=== PATIENT | male | born 1960 | race Two or more races ===

== ENCOUNTER → 2024-05-11 | Outpatient (CLI) | payer MEDICAID ==
[~2024-05-11] VITALS: Ht 170.2 cm; Wt 117.0 kg
[2024-05-11] MEDS: REGADENOSON 0.4 MG/5 ML SYRG IV ONE ×2 (09:07)
== END | disposition home or self-care (01) ==
LOC: XY 07:10
PROVIDERS: ATTEND Internal Medicine
DX: Z01.810 Encounter for preprocedural cardiovascular examination (principal); E78.00 Pure hypercholesterolemia, unspecified; E11.9 Type 2 diabetes mellitus without complications; Z68.41 Body mass index [BMI] 40.0-44.9, adult; I11.0 Hypertensive heart disease with heart failure; I50.9 Heart failure, unspecified
CPT/HCPCS: 78452; 93017; A9500; J2785

== ENCOUNTER 2024-06-12 06:58 | Day surgery (SDC) | payer MEDICAID ==
[2024-06-12] VITALS (11 sets, daily range): BP systolic 115–152; BP diastolic 67–78; PULSE 52–66; RESP 9–14; TEMP 97.7; O2SAT 92–98
[~2024-06-12] VITALS: Ht 170.2 cm; Wt 119.3 kg
[~2024-06-12 06:58] MED LIST: METF-370 PO; TAMS0.4C39 PO
[2024-06-12] MEDS ORDERED: IODIXANOL 320MG/ML 100ML BTL IV ONE ×2 (07:25→08:43)
[2024-06-12] MEDS ORDERED: HEPARIN IN NS 1000Units/500mL 1,500 ML ONE (07:25)
[2024-06-12] MEDS ORDERED: LIDOCAINE 2%HCL (LOCAL ANESTH.) INJ 20ML MDV ONE (07:43)
[2024-06-12] MEDS ORDERED: fentaNYL CITRATE 100 MCG/2 ML VL ONE (08:22)
[2024-06-12] MEDS ORDERED: HEPARIN SODIUM (PORCINE) 5000 UNITS/ML 1ML VIAL ONE (08:22)
[2024-06-12] MEDS ORDERED: VERAPAMIL 2.5MG/ML INJ 2ML VIAL IV ONE (08:22)
[2024-06-12] MEDS ORDERED: ANGIOMAX 250 MG VIAL IV ONE (08:22)
[2024-06-12] MEDS ORDERED: MIDAZOLAM HCL 2MG/2ML 2ml VIAL (1mg/ml) ONE (08:23)
[2024-06-12] MEDS ORDERED: SODIUM CHL 0.9% 0 ML ONE (08:23)
== END 2024-06-12 12:00 | disposition home or self-care (01) ==
LOC: CATH 06:58
PROVIDERS: ATTEND Internal Medicine
DX: R07.89 Other chest pain (principal); I25.10 Atherosclerotic heart disease of native coronary artery without angina pectoris; I10 Essential (primary) hypertension; E11.9 Type 2 diabetes mellitus without complications; E78.00 Pure hypercholesterolemia, unspecified; Z79.84 Long term (current) use of oral hypoglycemic drugs
CPT/HCPCS: 71045; 93458; C1769; C1894; J1644; J2250; J3010; J7030; Q9967; 99152

== ENCOUNTER 2024-11-27 06:11 | Inpatient (IN) | payer MEDICAID, OTHER ==
[~2024-11-27] VITALS: Ht 170.2 cm; Wt 125.8 kg
[2024-11-27] VITALS (7 sets, daily range): BP systolic 113–145; BP diastolic 54–75; PULSE 52–68; RESP 10–17; TEMP 97.6–98.2; O2SAT 92–93
[~2024-11-27 06:11] MED LIST changes: +ATOR10TA PO
[2024-11-27] MEDS: PREGABALIN CAPSULE 75 MG CAP PO ONE (07:00)
[2024-11-27] MEDS: CELECOXIB 100 MG CAP PO ONE (07:00)
[2024-11-27] MEDS: ACETAMINOPHEN IV 1000 MG/100ML (10MG/ML) IV ONE (07:00)
[2024-11-27] MEDS ORDERED: MIDAZOLAM HCL 2MG/2ML 2ml VIAL (1mg/ml) ONE (07:03)
[2024-11-27] MEDS ORDERED: fentaNYL CITRATE 100 MCG/2 ML VL ONE (07:03)
[2024-11-27] MEDS ORDERED: DEXTROSE (50%) 50ML SYRG IV PRN (07:15)
[2024-11-27] MEDS ORDERED: NITROGLYCERIN 0.4 MG SL TAB SL PRN (07:15)
[2024-11-27] MEDS ORDERED: MORPHINE SULFATE INJ 2 MG/ml SYRG IV PRN (07:15)
[2024-11-27] MEDS ORDERED: PROPOFOL 10 MG/ML 20 ML IV ONE ×2 (07:40→08:56)
[2024-11-27] MEDS: CEFEPIME 1GM/ 50ML 50 ML IV ONE (08:40)
[2024-11-27] MEDS: ceFAZolin 2 GM/D5W100ml 100 ML IV ONE (08:40)
[2024-11-27] MEDS: TRANEXAMIC ACID 20 ML ONE ×2 (09:07→09:12)
[2024-11-27] MEDS: BUPIVACAINE 0.25% INJ 50ML VIAL ONE (10:00)
[2024-11-27] MEDS: MORPHINE SULF PF 5 MG/10 ML VIAL ONE (10:00)
[2024-11-27] MEDS: KETOROLAC TROMETH 30 MG/ML 1ML VIAL ONE (10:00)
[2024-11-27] MEDS: VANCOMYCIN HCL 1000 MG VL ONE (10:01)
[2024-11-27] MEDS ORDERED: ePHEDrine SULFATE 50 MG/ML AMP ONE (10:08)
[2024-11-27] MEDS ORDERED: MEPERIDINE HCL (25 MG/ML) 1ML VIAL IV PRN (11:00)
[2024-11-27] MEDS: InsuLIN REG 1unit/0.01ml Soln (100units/ml) SC SCH ×2 (11:00→22:57)
[2024-11-27] MEDS: ACCU-CHEK COMFORT CURVE STRIP VI SCH (11:00)
[2024-11-27] MEDS ORDERED: ACETAMINOPHEN IV 1000 MG/100ML (10MG/ML) IV PRN ×2 (11:00→14:00)
[2024-11-27] MEDS ORDERED: HYDROmorphone HCL 2 MG/ML VL/or syr IV PRN (11:00)
--- NOTE | 2024-11-27 11:21 | DVH ---
EXAM: XY R KNEE 2V XRAY HISTORY: S/P SURGERY COMPARISON: None TECHNIQUE: AP and lateral views of the right knee were performed. FINDINGS: See below. IMPRESSION: 1. Postoperative changes of right total knee arthroplasty without evidence of periprosthetic fracture or other complication. 2. Intramedullary jenna is partially visualized in the mid tibial diaphysis, not fully imaged here.
[2024-11-27] MEDS: KETOROLAC TROMETH 30 MG/ML 1ML VIAL IV SCH (13:57)
[2024-11-27] MEDS: ACETAMINOPHEN IV 100 ML IV ONE (14:01)
[2024-11-27] MEDS: ROPIVACAINE 0.5% (5MG/ML) 20ML AMPULE IJ ONE (14:02)
[2024-11-27] MEDS: SODIUM CHLOR 0.9% PF (SALINE LOCK) 10ML VIAL/SYR IV SCH (14:04)
[2024-11-27] MEDS: ceFAZolin 2 GM/D5W50ml 50 ML IV SCH (15:53)
[2024-11-27] MEDS: oxyCODONE ER 10 MG TAB PO SCH (15:53)
[2024-11-27] MEDS: ONDANSETRON HCL 4 MG/2 ML VIAL IV ONE (15:53)
[2024-11-27] MEDS: LACTATED RINGER'S 1,000 ML IV SCH (15:54)
[2024-11-27] MEDS: PANTOPRAZOLE 40 MG TAB PO ONE (15:54)
[2024-11-27] MEDS: DOCUSATE SOD 100 MG CAP PO SCH (15:54)
--- NOTE | 2024-11-27 17:47 | DVHOP2 ---
Operative Report - 2 Report Details Date: 11/27/24 Preop Diagnosis: RIght knee osteoarthritis with 30 degree varus deformity Postop Diagnosis: as above Surgeon: Roland Aguilera MD Specialist Icu: Tequila Ku NP Anesthesiologist: Laureen DAWN Anesthesia: Regional Implant: [employer] Size 7 femur PS (2 mm inc in distal femur cut) Size 5 tibia (large medial wear deficit so lateralized tibia baseplate) Size 35 patella Size 12 constraint PS poly Consent: The patient was informed of the risks and benefits of the procedure. These include but are not limited to complications of anesthesia, postoperative infection, incomplete relief of symptoms, recurrence of symptoms, damage to blood vessels, nerves and tendons, deep venous thrombosis, pulmonary embolism and possible need for repeat surgery in the future. Estimated Blood Loss: 50 cc Name of Procedure Performed Complex right total knee arthroplasty with computer navigation, correction of greater than 30 degree varus deformity Procedure Details Procedure Details: FINDINGS: degenerative disease with grade IV changes with varus deformity of over 30 degrees/ Medial aspect severely tight with preop Range of motion 0-80 degrees; INDICATION: This patient has failed non-operative treatments for knee arthritis and is now indicated for a total knee replacement. Preoperatively in the waiting area as well as in the office, I had a long discussion with the patient regarding the plan, the expected outcome, the risks, benefits, and alternatives of surgery. The risks include, but are not limited to, infection (which may require future surgery and removal of implants) , bleeding (which may require a transfusion), damage to nerves, arteries, veins, tendons, muscles and other adjacent structures. Also discussed the possibilities of intraoperative fractures, implant loosening, heterotopic bone formation, and revision for variety of reasons, and medical complications etc. This was discussed at length and consent has been obtained. DESCRIPTION OF PROCEDURE: In the preoperative holding area, the consent was reviewed and the appropriate extremity was verified by the patient and marked with my initials. The patient was then transferred to the operating theatre. Appropriate anesthesia was induced. All bony prominences were well padded. A time out was performed verifying the side and site of surgery according to maribel lux protocol. Preoperative antibiotics were given 10 minutes prior to tourniquet inflation. Tranexamic was given. A well padded thigh tourniquet was applied. The extremity was then prepped and draped in the usual sterile fashion. The extremity was exsanguinated and the tourniquet was inflated. We then made a mid-line incision, which we continued to the underlying capsular tissue. We performed a medial parapatellar arthrotomy. We periosteally exposed the proximal tibia, excised the anterior fat pad and synovium from the distal aspect of the femur. We then subluxed the patella and brought the knee up into flexion. The lateral meniscus, ACL, and PCL were released. We used the appropriate guide with attached computer navigation to secure the distal femoral cutting block to the femur with pins and completed the distal femoral cut in 0 degrees to the mechanical axis with an oscillating saw. We removed the distal femoral cutting block and turned our attention to the tibia. We used the extramedullary tibial alignment guide with computer navigation to secure the proximal tibial cutting block to the tibia with pins, setting it for a 1mm cut from the more involved side, medially and completed the proximal tibial cut. Medially we had a large bony defect. We then used the spacer block and alignment jenna to check the varus-valgus angle of our cuts and the extension gap. Large medial release done to balance gap as patient was severely tight medially but opened significantly laterally. We marked our femoral anatomy, including Leola's line and the epicondylar axis. Using that as a rotational guide, we used the sizing guide to size our femur properly, using a stylus to ensure there would be no notching. We then used the AP cutting guide to make our anterior and posterior cuts and chamfer cuts with an oscillating saw. We again checked the flexion and extension gaps and coronal balancing. Next, we sized our tibia and secured a baseplate with appropriate rotation with pins. We placed a trial femur in position and completed preparation of the notch with reamers and box osteotome and placed a trial notch in position. We used trials to choose our liner size and then placed the liner in place and reduced the knee. We used an oscillating saw to resurface the patella, and used a guide to choose the button size and completed patella preparation with the drill. We then placed a trial button in place. At this point, we checked our seven parameters: 1) Limb alignment 2) Extension 3) Flexion against gravity 4) Flexion stability 5) Varus-valgus balancing 6) Component rotation 7) Patella tracking We were satisfied with these and removed all trials with the exception of the baseplate. We completed preparation of the tibia with the appropriate reamer and keel impactor and then removed the baseplate. We placed a bone plug in the distal femur and then irrigated and dried all bony surfaces and injected our pain cocktail. Cement with antibiotics was hand-mixed on the back table. We thumb impacted cement into the proximal tibia, distal femur and patella and impacted our tibial, femoral and patellar components into position. Excess naila ent was removed with curettes. We impacted our liner and reduced the knee and held it with axial loading until all cement hardened. We did a isaura-articular cocktail block Once all cement had hardened, we brought the knee back up into flexion and used an osteotome to remove excess cement. We released the tourniquet and achieved hemostasis where necessary. A dilute betadine solution (17.5mL in 500mL saline) was used to wash the joint and left to sit for 3 minutes. This was then irrigated out with copious amounts of pulse lavage. We sprinkled 1g vancomycin powder below the fascia and 1g above the fascia. We copiously irrigated the knee. We re-checked our seven parameters. We closed our capsular incision with a PDS style suture. We irrigated further. We closed the subcutaneous tissue with Vicryl suture and re-approximated the skin with Lilia. We verified all lower extremity compartments were soft and compressible and that we had intact distal pulses. We wrapped the extremity in sterile Webril and dariana bandage. The patient was transferred to the recovery room in stable condition. Condition Good Disposition Still a Patient ROLAND AGUILERA MD Nov 27, 2024 17:47
--- NOTE | 2024-11-27 18:29 | DVHINCON2 ---
Date of service: Nov 27, 2024 Referring Physician Simone Reason for Consultation Medical management History of Present Illness This is a 64 year old male with a PMH of HTN, DM, obesity and right knee osteoarthritis with 30 degree varus deformity who was referred to the hospital for total knee arthroplasty. Patient has failed non-operative treatments for knee arthritis and was indicated for a total knee replacement by Dr. Nichols. The patient underwent complex right total knee arthroplasty with computer navigation, correction of greater than 30 degree varus deformity and tolerated the procedure well. The patient has been admitted to the hospital. I am asked to consult on this patient for medical management. Allergies: Coded Allergies: NO KNOWN ALLERGIES (Unverified , 05/11/24) Home Meds Reported Medications Atorvastatin Calcium (Lipitor) 10 Mg Tab, 10 MG PO DAILY, TAB 11/23/24 Tamsulosin Hcl (Tamsulosin Hcl) 0.4 Mg Cap, 0.4 MG PO QPM for BPH for 30 Days, MG 06/07/24 Metformin Hydrochloride (Metformin Hcl) 500 Mg Tab, 1000 MG PO DAILY for DIABETES for 30 Days, MG 06/07/24 Current Medications Current Medications Medications (Trade) Dose Ordered Sig/Autumn Route PRN Reason Start Time Stop Time Status Last Admin Tamsulosin HCl (Flomax) 0.4 mg QPM PO 11/27/24 18:00 Atorvastatin Calcium (Lipitor) 10 mg HS PO 11/27/24 22:00 Lactated Ringer's 1,000 ml @ 100 mls/hr Q10H IV 11/27/24 07:15 Sodium Chloride (Saline Lock Ns) 10 ml Q8HR IV 11/27/24 14:00 11/27/24 14:04 Oxycodone/ Acetaminophen (Percocet 5/ 325MG Tablet) 1 tab Q4HP PRN PO MODERATE PAIN 11/27/24 07:15 Hydromorphone HCl (Dilaudid Injection) 1 mg Q2HP PRN IV SEVERE PAIN (7-10 PAIN SCALE) 11/27/24 07:15 Oxycodone HCl (OxyCONTIN ER Tablet) 10 mg Q12HR PO 11/27/24 10:00 Ondansetron HCl (Zofran) 4 mg Q6HP PRN IV NAUSEA / VOMITING 11/27/24 07:15 Docusate Sodium (Colace Capsule) 100 mg Q12HR PO 11/27/24 10:00 Enoxaparin Sodium (Lovenox) 40 mg DAILY SC 11/28/24 10:00 Nitroglycerin (Ntrostat Sublingual) 0.4 mg Q5MINP PRN SL FOR CHEST PAIN 11/27/24 07:15 Morphine Sulfate 2 mg Q30M PRN IV FOR CHEST PAIN 11/27/24 07:15 Cefepime HCl 50 ml @ 12.5 mls/hr DAILY IV 11/28/24 10:00 Cefazolin Sodium/ Dextrose 50 ml @ 50 mls/hr Q8HR IV 11/27/24 14:00 11/28/24 06:59 Ketorolac Tromethamine (Toradol Injection) 15 mg Q6HPRN IV 11/27/24 12:00 11/28/24 18:01 11/27/24 13:57 Diagnostic Test (Pha) (Accu-Chek Comfort Curve T) 1 strip ACHS 11/27/24 11:30 11/27/24 17:43 Insulin Human Regular (InsuLIN R) HS SC 11/27/24 22:00 Insulin Human Regular (InsuLIN R) AC SC 11/27/24 11:30 11/27/24 17:56 Dextrose 50 ml UD PRN IV Blood Sugar LESS THAN 60 11/27/24 07:15 Acetaminophen (Ofirmev) 1,000 mg [id number] PRN IV PAIN SCALE 1-3 OR TEMP>100.4 11/27/24 11:00 11/27/24 11:01 DC Hydromorphone HCl (Dilaudid Injection) 0.5 mg Q10M PRN IV SEVERE PAIN (7-10 PAIN SCALE) 11/27/24 11:00 11/27/24 15:00 DC Meperidine HCl (Demerol Injection) 25 mg Q10M PRN IV MODERATE PAIN (4-6 PAIN SCALE) 11/27/24 11:00 11/27/24 15:00 DC Acetaminophen (Ofirmev) 1,000 mg [id number] PRN IV PAIN SCALE 1-3 OR TEMP>100.4 11/27/24 14:00 11/27/24 14:30 DC Review of Systems Constitutional: No symptom reported Ears, Nose, & Throat: No symptom reported Eyes: No symptom reported Pulmonary/Respiratory: No symptom reported Cardiovascular: No symptom reported Gastrointestinal: No symptom reported Genitourinary: No symptom reported Musculoskeletal: Other (right knee pain) Skin: No symptom reported Psychiatric: No symptom reported Endocrine: No symptom reported Hemotologic/Lymphatic: No symptom reported Vital Signs Vital Signs Date Time Temp Pulse Resp B/P (MAP) Pulse Ox O2 Delivery O2 Flow Rate FiO2 11/27/24 17:00 97.6 62 16 145/75 (98) 93 97.6 11/27/24 12:39 Room Air Physical Exam GENERAL: Awake, alert, oriented. Obese. LUNGS: Clear. CARDIOVASCULAR: Heart sounds are good. ABDOMEN: Soft. Labs/Diagnostic Data Labs Test 11/27/24 17:32 Range/Units POC Glucose 216 H 70-106 mg/dl Assessment Right knee osteoarthritis. S/P complex right total knee arthroplasty. HTN. DM. Obesity. Plan/Recommendation I agree with your ongoing assessment and care of plan. Lipitor. IV antibiotics with Cefazolin and Cefepime. DVT prophylactics. Oxycodone and Dilaudid for pain management. Additional plan as per the hospital course. A total of 45 minutes was spent reviewing the patient record, examining the patient, making a diagnostic and therapeutic plan, discussing this plan with medical personnel, following up on diagnostic studies and following the patient for clinical stability excluding any and all procedures. At least 50% of this time was spent in direct, [id number] contact. Plan discussed with: Patient ERYN MESSER MD Nov 27, 2024 18:26
[2024-11-27] MEDS: TAMSULOSIN HYDROCHLORIDE 0.4 MG CAP PO SCH (19:09)
[2024-11-27] MEDS: HYDROmorphone HCL 2 MG/ML VL/or syr IV PRN (19:10)
[2024-11-27] MEDS: ATORVASTATIN 20 MG TAB PO SCH (21:35)
[2024-11-28] VITALS (7 sets, daily range): BP systolic 121–154; BP diastolic 45–71; PULSE 69–90; RESP 17–20; TEMP 98.1–102.6; O2SAT 90–94
[2024-11-28] MEDS: ONDANSETRON HCL 4 MG/2 ML VIAL IV PRN (05:36)
[2024-11-28 07:22] LABS: Hematocrit 39.7 % (41.0-53.0); Hemoglobin 13.5 g/dL (13.5-17.5)
[2024-11-28 07:33] LABS: Alanine Aminotransferase 19 U/L (7-40); Albumin 3.5 g/dL (3.2-4.8); Alkaline Phosphatase 91 U/L (46-116); Anion Gap 9 (5-15); Aspartate Aminotransferase 14 U/L (13-40); BUN/Creatinine Ratio 16.9 (10.0-20.0); Blood Urea Nitrogen 14 mg/dL (9-23); Calcium 8.8 mg/dL (8.7-10.4); Carbon Dioxide 26 mmol/L (20-31); Chloride 103 mmol/L (98-107); Potassium 3.8 mmol/L (3.5-5.1); Sodium 138 mmol/L (136-145)
[2024-11-28 07:34] LABS: Bilirubin, Total 0.7 mg/dL (0.2-1.0)
[2024-11-28 07:35] LABS: Glucose 171 mg/dL (74-106); Total Protein 5.5 g/dL (5.7-8.2)
--- NOTE | 2024-11-28 08:12 | DVHPN2 ---
Progress Note Date Seen: Nov 28, 2024 Medical Necessity Reason Pt with a Central, PICC or Fol: No Subjective Patient reports: No new complaints Objective vital signs Vital Sign Date Time Temp Pulse Resp B/P (MAP) Pulse Ox O2 Delivery O2 Flow Rate FiO2 11/28/24 06:27 91 17 138/60 11/28/24 04:00 102.6 94 102.6 11/27/24 20:00 Room Air* 0 21 Total Intake and Output 11/27/24 11/27/24 11/28/24 15:00 23:00 07:00 Intake Total 190 ml 240 ml 450 ml Output Total 300 ml 350 ml Balance 190 ml -60 ml 100 ml medications Current Medications Medications Dose Ordered Sig/Autumn Route Start Time Stop Time Status Last Admin Dose Admin Tamsulosin HCl 0.4 mg QPM PO 11/27/24 18:00 11/27/24 19:09 0.4 MG Atorvastatin Calcium 10 mg HS PO 11/27/24 22:00 11/27/24 21:35 10 MG Lactated Ringer's 1,000 ml @ 100 mls/hr Q10H IV 11/27/24 07:15 11/28/24 05:00 100 MLS/HR Sodium Chloride 10 ml Q8HR IV 11/27/24 14:00 11/28/24 05:00 10 ML Oxycodone/ Acetaminophen 1 tab Q4HP PRN PO 11/27/24 07:15 Hydromorphone HCl 1 mg Q2HP PRN IV 11/27/24 07:15 11/28/24 06:27 1 MG Oxycodone HCl 10 mg Q12HR PO 11/27/24 10:00 11/27/24 21:35 10 MG Ondansetron HCl 4 mg Q6HP PRN IV 11/27/24 07:15 11/28/24 05:36 4 MG Docusate Sodium 100 mg Q12HR PO 11/27/24 10:00 Enoxaparin Sodium 40 mg DAILY SC 11/28/24 10:00 Nitroglycerin 0.4 mg Q5MINP PRN SL 11/27/24 07:15 Morphine Sulfate 2 mg Q30M PRN IV 11/27/24 07:15 Cefepime HCl 50 ml @ 12.5 mls/hr DAILY IV 11/28/24 10:00 Ketorolac Tromethamine 15 mg Q6HPRN IV 11/27/24 12:00 11/28/24 18:01 11/28/24 05:01 15 MG Diagnostic Test (Pha) 1 strip ACHS 11/27/24 11:30 11/28/24 06:22 1 STRIP Insulin Human Regular HS SC 11/27/24 22:00 11/27/24 22:57 4 UNITS Insulin Human Regular AC SC 11/27/24 11:30 11/28/24 06:25 3 UNITS Dextrose 50 ml UD PRN IV 11/27/24 07:15 laboratory and microbiology Laboratory Tests 11/28/24 06:29 Test 11/28/24 06:29 Range/Units Serum Glucose 171 H 74-106 mg/dL Problem List/Assessment/Plan Problem List/Assessment/Plan 1. pain control 2. DVT ppx 3. CPM as ordered 4. Knee immobilizer to be worn at night when sleeping 5. physical therapy 6. d/c planning for home tomorrow Plan discussed with: Patient Date of Service: Nov 28, 2024 Billing Provider: FELICE AGUILERA MD Common Visit Codes: NOT BILLABLE FREDA MENDOZA NP Nov 28, 2024 08:12
[2024-11-28] MEDS: CEFEPIME 1GM/ 50ML 50 ML IV SCH (09:04)
[2024-11-28] MEDS: ENOXAPARIN SOD 40 MG/0.4 ML SYRINGE SC SCH (09:05)
--- NOTE | 2024-11-28 17:14 | DVHPN2 ---
Progress Note - Dictate Date Seen: Nov 28, 2024 Medical Necessity Reason Pt with a Central, PICC or Fol: No Subjective Patient was seen and evaluated in follow up. Patient is complaining of right knee pain. Patient advised to wear knee immobilizer at night when sleeping. H&H stable. Pending PT eval. vital signs Vital Sign Date Time Temp Pulse Resp B/P (MAP) Pulse Ox O2 Delivery O2 Flow Rate FiO2 11/28/24 16:36 87 18 128/58 11/28/24 13:00 98.3 98.3 11/28/24 09:00 90 11/28/24 08:00 Room Air* 0 21 Total Intake and Output 11/27/24 11/27/24 11/28/24 15:00 23:00 07:00 Intake Total 190 ml 240 ml 650 ml Output Total 300 ml 350 ml Balance 190 ml -60 ml 300 ml medications Current Medications Medications Dose Ordered Sig/Autumn Route Start Time Stop Time Status Last Admin Dose Admin Tamsulosin HCl 0.4 mg QPM PO 11/27/24 18:00 11/27/24 19:09 0.4 MG Atorvastatin Calcium 10 mg HS PO 11/27/24 22:00 11/27/24 21:35 10 MG Lactated Ringer's 1,000 ml @ 100 mls/hr Q10H IV 11/27/24 07:15 11/28/24 05:00 100 MLS/HR Sodium Chloride 10 ml Q8HR IV 11/27/24 14:00 11/28/24 14:05 10 ML Oxycodone/ Acetaminophen 1 tab Q4HP PRN PO 11/27/24 07:15 Hydromorphone HCl 1 mg Q2HP PRN IV 11/27/24 07:15 11/28/24 16:36 1 MG Oxycodone HCl 10 mg Q12HR PO 11/27/24 10:00 11/28/24 09:05 10 MG Ondansetron HCl 4 mg Q6HP PRN IV 11/27/24 07:15 11/28/24 05:36 4 MG Docusate Sodium 100 mg Q12HR PO 11/27/24 10:00 11/28/24 09:04 100 MG Enoxaparin Sodium 40 mg DAILY SC 11/28/24 10:00 11/28/24 09:05 40 MG Nitroglycerin 0.4 mg Q5MINP PRN SL 11/27/24 07:15 Morphine Sulfate 2 mg Q30M PRN IV 11/27/24 07:15 Cefepime HCl 50 ml @ 12.5 mls/hr DAILY IV 11/28/24 10:00 11/28/24 09:04 12.5 MLS/HR Ketorolac Tromethamine 15 mg Q6HPRN IV 11/27/24 12:00 11/28/24 18:01 11/28/24 05:01 15 MG Diagnostic Test (Pha) 1 strip ACHS 11/27/24 11:30 11/28/24 16:36 1 STRIP Insulin Human Regular HS SC 11/27/24 22:00 11/27/24 22:57 4 UNITS Insulin Human Regular AC SC 11/27/24 11:30 11/28/24 12:36 3 UNITS Dextrose 50 ml UD PRN IV 11/27/24 07:15 objective GENERAL: Awake, alert, oriented. Obese. LUNGS: Clear. CARDIOVASCULAR: Heart sounds are good. ABDOMEN: Soft. laboratory and microbiology Laboratory Tests 11/28/24 06:29 Test 11/28/24 06:29 Range/Units Serum Glucose 171 H 74-106 mg/dL Problem List Right knee osteoarthritis. S/P complex right total knee arthroplasty. HTN. DM. Obesity. Assessment/Plan Continued all current supportive medical care. Lipitor. IV antibiotics with Cefazolin and Cefepime. DVT prophylactics. Oxycodone and Dilaudid for pain management. Additional plan as per the hospital course. Plan discussed with: Patient ERYN MESSER MD Nov 28, 2024 17:14
[2024-11-29] VITALS (7 sets, daily range): BP systolic 126–150; BP diastolic 47–73; PULSE 85–105; RESP 16–19; TEMP 98.8–99.5; O2SAT 91–95
[2024-11-29 06:00] LABS: Hematocrit 37.1 % (41.0-53.0); Hemoglobin 12.9 g/dL (13.5-17.5)
--- NOTE | 2024-11-29 07:39 | DVHPN2 ---
Progress Note Date Seen: Nov 29, 2024 Medical Necessity Reason Pt with a Central, PICC or Fol: No Subjective Patient reports: Feels worse (patient notes increased pain and is having difficulty controlling pain and getting sleep due to discomfort) Objective vital signs Vital Sign Date Time Temp Pulse Resp B/P (MAP) Pulse Ox O2 Delivery O2 Flow Rate FiO2 11/29/24 05:00 99.2 100 19 150/66 (94) 91 99.2 11/28/24 20:00 Room Air* 0 21 Total Intake and Output 11/28/24 11/28/24 11/29/24 15:00 23:00 07:00 Intake Total 380 ml 1300 ml Output Total 150 ml 690 ml Balance 230 ml 610 ml medications Current Medications Medications Dose Ordered Sig/Autumn Route Start Time Stop Time Status Last Admin Dose Admin Tamsulosin HCl 0.4 mg QPM PO 11/27/24 18:00 11/28/24 18:04 0.4 MG Atorvastatin Calcium 10 mg HS PO 11/27/24 22:00 11/28/24 21:56 10 MG Lactated Ringer's 1,000 ml @ 100 mls/hr Q10H IV 11/27/24 07:15 11/28/24 23:15 100 MLS/HR Sodium Chloride 10 ml Q8HR IV 11/27/24 14:00 11/29/24 06:09 10 ML Oxycodone/ Acetaminophen 1 tab Q4HP PRN PO 11/27/24 07:15 Hydromorphone HCl 1 mg Q2HP PRN IV 11/27/24 07:15 11/29/24 02:43 1 MG Oxycodone HCl 10 mg Q12HR PO 11/27/24 10:00 11/28/24 21:56 10 MG Ondansetron HCl 4 mg Q6HP PRN IV 11/27/24 07:15 11/28/24 05:36 4 MG Docusate Sodium 100 mg Q12HR PO 11/27/24 10:00 11/28/24 21:56 100 MG Enoxaparin Sodium 40 mg DAILY SC 11/28/24 10:00 11/28/24 09:05 40 MG Nitroglycerin 0.4 mg Q5MINP PRN SL 11/27/24 07:15 Morphine Sulfate 2 mg Q30M PRN IV 11/27/24 07:15 Cefepime HCl 50 ml @ 12.5 mls/hr DAILY IV 11/28/24 10:00 11/28/24 09:04 12.5 MLS/HR Diagnostic Test (Pha) 1 strip ACHS 11/27/24 11:30 11/29/24 06:17 1 STRIP Insulin Human Regular HS SC 11/27/24 22:00 11/28/24 22:04 4 UNITS Insulin Human Regular AC SC 11/27/24 11:30 11/29/24 06:13 3 UNITS Dextrose 50 ml UD PRN IV 11/27/24 07:15 Examination: GENERAL:Normal, MSK:Abnormal laboratory and microbiology Laboratory Tests 11/29/24 05:20 11/28/24 06:29 Test 11/28/24 06:29 Range/Units Serum Glucose 171 H 74-106 mg/dL Problem List/Assessment/Plan Problem List/Assessment/Plan 64 year old male who is s/p Right TKA POD 2 1. pain control-will attempt to gain better pain control today 2. DVT ppx 3. CPM as ordered, emphasized with patient the importance of range of motion as the goal is to be able to bend to 90 degrees at first postop visit 4. Knee immobilizer to be worn at night when sleeping 5. physical therapy 6. d/c planning for home tomorrow 11/30/2024 Plan discussed with: Patient Date of Service: Nov 29, 2024 Billing Provider: FELICE AGUILERA MD Common Visit Codes: NOT BILLABLE FREDA MENDOZA NP Nov 29, 2024 07:39
--- NOTE | 2024-11-29 15:38 | DVHPN2 ---
Progress Note - Dictate Date Seen: Nov 29, 2024 Medical Necessity Reason Pt with a Central, PICC or Fol: No Subjective Patient was seen and evaluated in follow up. Patient complains of increasing right knee pain and reports having difficulty controlling pain and getting sleep due to discomfort. H&H is stable. BS in the 170s. vital signs Vital Sign Date Time Temp Pulse Resp B/P (MAP) Pulse Ox O2 Delivery O2 Flow Rate FiO2 11/29/24 13:05 85 16 143/61 11/29/24 09:00 99.4 95 99.4 11/29/24 08:00 Room Air* 0 21 Total Intake and Output 11/28/24 11/28/24 11/29/24 15:00 23:00 07:00 Intake Total 380 ml 1300 ml Output Total 150 ml 690 ml Balance 230 ml 610 ml medications Current Medications Medications Dose Ordered Sig/Autumn Route Start Time Stop Time Status Last Admin Dose Admin Tamsulosin HCl 0.4 mg QPM PO 11/27/24 18:00 11/28/24 18:04 0.4 MG Atorvastatin Calcium 10 mg HS PO 11/27/24 22:00 11/28/24 21:56 10 MG Lactated Ringer's 1,000 ml @ 100 mls/hr Q10H IV 11/27/24 07:15 11/29/24 08:59 100 MLS/HR Sodium Chloride 10 ml Q8HR IV 11/27/24 14:00 11/29/24 06:09 10 ML Oxycodone/ Acetaminophen 1 tab Q4HP PRN PO 11/27/24 07:15 Hydromorphone HCl 1 mg Q2HP PRN IV 11/27/24 07:15 11/29/24 08:58 1 MG Oxycodone HCl 10 mg Q12HR PO 11/27/24 10:00 11/29/24 11:16 10 MG Ondansetron HCl 4 mg Q6HP PRN IV 11/27/24 07:15 11/28/24 05:36 4 MG Docusate Sodium 100 mg Q12HR PO 11/27/24 10:00 11/29/24 08:57 100 MG Enoxaparin Sodium 40 mg DAILY SC 11/28/24 10:00 11/29/24 08:59 40 MG Nitroglycerin 0.4 mg Q5MINP PRN SL 11/27/24 07:15 Morphine Sulfate 2 mg Q30M PRN IV 11/27/24 07:15 Cefepime HCl 50 ml @ 12.5 mls/hr DAILY IV 11/28/24 10:00 11/29/24 11:15 12.5 MLS/HR Diagnostic Test (Pha) 1 strip ACHS 11/27/24 11:30 11/29/24 11:24 1 STRIP Insulin Human Regular HS SC 11/27/24 22:00 11/28/24 22:04 4 UNITS Insulin Human Regular AC SC 11/27/24 11:30 11/29/24 11:27 3 UNITS Dextrose 50 ml UD PRN IV 11/27/24 07:15 objective GENERAL: Awake, alert, oriented. Obese. LUNGS: Clear. CARDIOVASCULAR: Heart sounds are good. ABDOMEN: Soft. laboratory and microbiology Laboratory Tests 11/29/24 05:20 11/28/24 06:29 Test 11/28/24 06:29 Range/Units Serum Glucose 171 H 74-106 mg/dL Problem List Right knee osteoarthritis. S/P complex right total knee arthroplasty. HTN. DM. Obesity. Assessment/Plan Continued all current supportive medical care. Lipitor. IV antibiotics with Cefazolin and Cefepime. DVT prophylactics. Oxycodone and Dilaudid for pain management. Additional plan as per the hospital course. Plan discussed with: Patient ERYN MESSER MD Nov 29, 2024 14:11
[2024-11-29] MEDS: OXYCODONE W/ ACETAMINOPHEN 5/325MG TABLET PO PRN (16:32)
[2024-11-30] VITALS (7 sets, daily range): BP systolic 121–140; BP diastolic 56–84; PULSE 89–96; RESP 18–19; TEMP 98.2–100.2; O2SAT 92–96
--- NOTE | 2024-11-30 07:31 | DVHDS2 ---
Discharge Summary Date of Admission Nov 27, 2024 at 07:04 Date of Discharge: Nov 30, 2024 Wounds: 1. You will likely have a gel-type dressing over your wound, you may keep this on for 7-14 days after leaving the hospital unless it becomes soiled or your skin becomes irritated. If a wound vac dressing is placed on your knee this is to be left in place for one week and will be changed as needed. After your remove the dressing or wound vac, the home health nurse may place clean dry dressing over your wound. Keep wound covered, clean and dry for two weeks. 2. [place] will be removed during your initial post-op visit. If you have concerns about our wound, please call the office immediately. 3. If there is drainage from your wound, change the dressing daily until it stops. If drainage lasts more than 10 days, call our office. 4. Low grade (up to 100 degrees) fever is common for the first week after surgery. You should take your temperature daily. If you have fevers of 101 or more, please call the office. Labs/Diagnostic Data: Laboratory Results Test 11/29/24 21:50 11/29/24 05:20 11/28/24 06:29 POC Glucose 258 mg/dl (70-106) Hemoglobin 12.9 g/dL (13.5-17.5) Hematocrit 37.1 % (41.0-53.0) Sodium Level 138 mmol/L (136-145) Potassium Level 3.8 mmol/L (3.5-5.1) Chloride Level 103 mmol/L (98-107) Carbon Dioxide Level 26 mmol/L (20-31) Anion Gap 9 (5-15) Blood Urea Nitrogen 14 mg/dL (9-23) Creatinine 0.83 mg/dL (0.700-1.30) Glomerular Filtration Rate Calc 98 mL/min (>90) BUN/Creatinine Ratio 16.9 (10.0-20.0) Serum Glucose 171 mg/dL (74-106) Calcium Level 8.8 mg/dL (8.7-10.4) Total Bilirubin 0.7 mg/dL (0.2-1.0) Aspartate Amino Transferase (AST) 14 U/L (13-40) Alanine Aminotransferase (ALT) 19 U/L (7-40) Alkaline Phosphatase 91 U/L (46-116) Total Protein 5.5 g/dL (5.7-8.2) Albumin 3.5 g/dL (3.2-4.8) Other Laboratory Tests 11/29/24 05:20 11/28/24 06:29 Brief Hx & Hospital Course: s/p right TKA Condition at Discharge: Good Final Diagnosis/Problems List as above Discharge Disposition: Home with Health Services Discharge Instruct/Medications Diet: Regular Diet comment: may advance diet as tolerated Activity: See Comment Activity comment: 1.You can bear as much weight as you tolerate on your knee unless specifically instructed otherwise. You may use the walking aid which you were discharged with and switch to a cane whenever you feel comfortable doing so. You should use an assistive device until you can walk comfortably without it. Keep in mind that every patient moves at their own speed of recovery so take your time. 2.A physical therapist will visit you at home. 3.Use CPM machine as instructed 4.High impact activity such as jumping, aerobics, tennis, and skiing are not permitted during the first 3 months after surgery. These activities can contribute to accelerated wear and should be done with caution after this time. Discuss this with your surgeon if you have questions. 5.Although a bath or whirlpool is NOT permitted during the first 2-3 weeks, you may shower as soon as you get home from the hospital provided there is no wound drainage. Place a dressing or covering over the wound when you shower. 6.Swimming is not permitted until the wound is healed, which typically occurs approximately 3-4 weeks after surgery. Follow Up/Referral: 1.Driving is not permitted within the first 2 weeks. 2.Your first postoperative visit will take place 2 weeks after discharge. Please call the office once you are home from the hospital to arrange this appointment. 3.Antibiotic preventative treatment is required before dental or other invasive procedures. Please ask your surgeon about this at your first postoperative visit. If you experience chest pain, shortness of breath or severe painful calf swelling, go to the nearest emergency room to be evaluated. Please call our office once your situation is stabilized. Medications: 1.You will be discharged with pain medication, a blood thinner (unless you were previously on a blood thinner prior to surgery) and stool softener. Please follow the instructions regarding these medications as provided by your nurse at the hospital upon discharge. 2.Blood clots in the leg are a known complication of surgery. It is very important that you take the medication to protect against clots. Depending on what you are discharged on typically it is Lovenox 40mg daily for 2 weeks or Aspirin 325mg twice daily for 4 weeks. After you finish this, you should then take baby Aspirin (81mg) for 2 weeks. 3.You should restart all of your prescription medications once discharged unless specifically instructed otherwise. 4.Herbal supplements may be restarted 2 weeks after surgery. 5.If you have been given Coumadin as a blood thinner, please follow up with your grinding wheel dresser during the first two weeks after surgery to review medications and overall medical well-being. 6.Please note that narcotic pain medication may cause constipation. Please remember to take stool softeners (Colace) when using narcotics to help reduce the change of constipation. You should not use alcohol together with narcotic medication. Discharge Statement: "Patient was advised to return to the ER or call 911 if any headaches, dizziness, shortness of breath, chest pain, abdominal pain, bleeding, fevers, or worsening of medical condition. Patient was counseled about treatment plan, medications, possible side effects, patientverbalized understanding. All questions were answered to the best of my ability. This discharge took greater then 30 minutes in planning, reviewing documentation, counseling the patient, and discussing with other team members." ASSESSMENT ASSESSMENT Assessment as above FREDA MENDOZA NP Nov 30, 2024 07:31
[2024-11-30 08:16] LABS: Hematocrit 36.1 % (41.0-53.0); Hemoglobin 12.4 g/dL (13.5-17.5)
--- NOTE | 2024-11-30 13:25 | DVHPN2 ---
Progress Note - Dictate Date Seen: Nov 30, 2024 Medical Necessity Reason Pt with a Central, PICC or Fol: No Subjective Patient was seen and evaluated in follow up. Patient is complaining of right knee pain. BS are elevated in the 200's. CM is arranging services. vital signs Vital Sign Date Time Temp Pulse Resp B/P (MAP) Pulse Ox O2 Delivery O2 Flow Rate FiO2 11/30/24 08:30 99.5 89 19 135/64 (87) 96 99.5 11/30/24 08:00 Room Air* 0 21 Total Intake and Output 11/29/24 11/29/24 11/30/24 15:00 23:00 07:00 Intake Total 985 ml 550 ml Output Total 700 ml Balance 985 ml -150 ml medications Current Medications Medications Dose Ordered Sig/Autumn Route Start Time Stop Time Status Last Admin Dose Admin Tamsulosin HCl 0.4 mg QPM PO 11/27/24 18:00 11/29/24 17:42 0.4 MG Atorvastatin Calcium 10 mg HS PO 11/27/24 22:00 11/29/24 21:47 10 MG Lactated Ringer's 1,000 ml @ 100 mls/hr Q10H IV 11/27/24 07:15 11/30/24 05:15 100 MLS/HR Sodium Chloride 10 ml Q8HR IV 11/27/24 14:00 11/30/24 06:07 10 ML Oxycodone/ Acetaminophen 1 tab Q4HP PRN PO 11/27/24 07:15 11/29/24 16:32 1 TAB Hydromorphone HCl 1 mg Q2HP PRN IV 11/27/24 07:15 11/29/24 08:58 1 MG Oxycodone HCl 10 mg Q12HR PO 11/27/24 10:00 11/30/24 08:20 10 MG Ondansetron HCl 4 mg Q6HP PRN IV 11/27/24 07:15 11/28/24 05:36 4 MG Docusate Sodium 100 mg Q12HR PO 11/27/24 10:00 11/30/24 08:19 100 MG Enoxaparin Sodium 40 mg DAILY SC 11/28/24 10:00 11/30/24 08:20 40 MG Nitroglycerin 0.4 mg Q5MINP PRN SL 11/27/24 07:15 Morphine Sulfate 2 mg Q30M PRN IV 11/27/24 07:15 Cefepime HCl 50 ml @ 12.5 mls/hr DAILY IV 11/28/24 10:00 11/30/24 08:19 12.5 MLS/HR Diagnostic Test (Pha) 1 strip ACHS 11/27/24 11:30 11/30/24 11:02 1 STRIP Insulin Human Regular HS SC 11/27/24 22:00 11/29/24 21:55 6 UNITS Insulin Human Regular AC SC 11/27/24 11:30 11/30/24 11:04 6 UNITS Dextrose 50 ml UD PRN IV 11/27/24 07:15 objective GENERAL: Awake, alert, oriented. Obese. LUNGS: Clear. CARDIOVASCULAR: Heart sounds are good. ABDOMEN: Soft. laboratory and microbiology Laboratory Tests 11/30/24 06:56 11/28/24 06:29 Test 11/28/24 06:29 Range/Units Serum Glucose 171 H 74-106 mg/dL Problem List Right knee osteoarthritis. S/P complex right total knee arthroplasty. HTN. DM. Obesity. Assessment/Plan Continued all current supportive medical care. Lipitor. IV antibiotics with Cefazolin and Cefepime. DVT prophylactics. Oxycodone and Dilaudid for pain management. Additional plan as per the hospital course. Plan discussed with: Patient ERYN MESSER MD Nov 30, 2024 12:14
== END 2024-11-30 17:49 | disposition home health service (06) | DRG 326 ==
LOC: SUR 06:11 → OVERFLOW 07:04 → WEST WING 16:47
PROVIDERS: ADMIT Orthopaedic Surgery Adult Reconstructive Orthopaedic Surgery; ATTEND Orthopaedic Surgery Adult Reconstructive Orthopaedic Surgery
PROC: 8E0YXBZ Computer Assisted Procedure of Lower Extremity (ICD-10-PCS; 2024-11-27)
PROC: 0SRC0J9 Replacement of Right Knee Joint with Synthetic Substitute, Cemented, Open Approach (ICD-10-PCS; principal; 2024-11-27 08:40)
DX: M17.11 Unilateral primary osteoarthritis, right knee (principal); E11.9 Type 2 diabetes mellitus without complications; I10 Essential (primary) hypertension; E66.9 Obesity, unspecified; Z68.41 Body mass index [BMI] 40.0-44.9, adult; Z79.899 Other long term (current) drug therapy; Z79.84 Long term (current) use of oral hypoglycemic drugs
CPT/HCPCS: 36415; 73560; 80053; 82962; 85014; 85018; 86850; 86900; 86901; 97116; 97163; 97530; G0378; J0131; J1815; J1885; J2250; J2405; J2704; J3490

== ENCOUNTER 2025-07-19 09:47 | Day surgery (SDC) | payer OTHER ==
[~2025-07-19] VITALS: Ht 175.3 cm; Wt 120.7 kg
[~2025-07-19 09:47] MED LIST changes: -METF-370 PO; +PERCOT PO; +SITA50TA PO
[2025-07-19 10:42] VITALS: TEMP 97.5
[2025-07-19] MEDS ORDERED: MIDAZOLAM HCL 2MG/2ML 2ml VIAL (1mg/ml) ONE (11:04)
[2025-07-19] MEDS ORDERED: PROPOFOL 10 MG/ML 20 ML IV ONE (11:04)
[2025-07-19] MEDS ORDERED: ONDANSETRON HCL 4 MG/2 ML VIAL ONE (11:04)
[2025-07-19] MEDS ORDERED: fentaNYL CITRATE 100 MCG/2 ML VL ONE (11:04)
[2025-07-19] MEDS ORDERED: SODIUM CHLORIDE LOCK 10 ML ONE (11:04)
[2025-07-19 11:40] VITALS: PULSE 58; RESP 12; O2SAT 96
--- NOTE | 2025-07-19 11:40 | DVHHP2 ---
GI H&P Pre-Op Assessment Date: 07/19/25 Chief complaint: dysphagia HPI: per clinic note Past medical history: per clinic note Past surgical history: per clinic note Family history: per clinic note Physical exam: General: NAD, AAOX3 HEENT: PERRL, no scleral icterus, normal hearing, gums without lesions or bleeding, oropharynx clear without erythema or exudate. Neck: Supple without enlargement of the thyroid, or lymphadenopathy. Chest: Normal size and shape, no tenderness, lung lucas clear to auscultation and percussion, nonlabored breathing. Heart: RRR, no murmur Abdomen: non-distended, no tenderness to palpation, +BS, no hepatosplenomegaly Extremities: no edema Neurological: CN II-XII intact, sensation intact in all extremities, 5+ strength in all extremities Skin: No rashes, No jaundice Assessment: - dysphagia Plan: - EGD - Risks (bleeding, infection, perforation, reaction to sedation medications and cardiopulmonary arrest) and benefit of the procedure were explained to patient. Patient agrees to undergo the procedure. NATIVIDAD COLEMAN MD Jul 19, 2025 11:40
--- NOTE | 2025-07-19 11:42 | DVHDS2 ---
Physician Discharge Progress N Final Diagnosis: Duodenitis, antral gastritis, dysphagia Operations or Procedures: Operations or Procedures EGD with cold biopsy and dilation with bougie Condition on Discharge: Good Disposition: Home Discharge Instructions: Diet: Regular Activity: No Restrictions, As Tolerated Medications: Resume previous home medications Follow Up Care: Discharge Statement: "Patient was advised to return to the ER or call 911 if any headaches, dizziness, shortness of breath, chest pain, abdominal pain, bleeding, fevers, or worsening of medical condition. Patient was counseled about treatment plan, medications, possible side effects, patientverbalized understanding. All questions were answered to the best of my ability. This discharge took greater then 30 minutes in planning, reviewing documentation, counseling the patient, and discussing with other team members." NATIVIDAD COLEMAN MD Jul 19, 2025 11:42
--- NOTE | 2025-07-19 11:42 | DVHOP2 ---
Operative Report DATE OF OPERATION: 07/19/25 PROCEDURE: Upper Endoscopy. PREOPERATIVE INDICATION: The patient is a 65 -year-old male undergoing endoscopy for dysphagia. POSTOPERATIVE DIAGNOSES: 1. Slight duodenitis in the duodenal bulb 2. Antral gastritis 3. The esophagus was normal in appearance. It was dilated with 52 [place] bougie PROCEDURE PERFORMED BY: Eliud Gunter SCOPE: Olympus videoendoscope. ASA CLASS: 3 PREOPERATIVE MEDICATIONS: MAC with Dr Hardin PROCEDURE IN DETAIL: After obtaining an informed consent, the patient was placed on his back. The patient was then sedated with the above medications. A bite block was placed between his teeth. The endoscope was then passed through the oropharynx, into the esophagus, and through the stomach and pylorus up to the second and third part of the duodenum. There was slight duodenitis in the duodenal bulb. There was antral gastritis. Antral biopsy obtained using cold forceps. The GE junction was normal in appearance at 40 cm. The esophagus was normal in appearance. The endoscope was then withdrawn. Esophagus was dilated with 52 [place] bougie. The patient tolerated the procedure well without difficulty. COMPLICATIONS : None SPECIMENS: Antral biopsies DISPOSITION: D/C to home PLAN: 1. Await for biopsy result 2. Will place pt on Protonix 40 mg daily. ELIUD GUNTER MD Jul 19, 2025 11:42
[2025-07-19 12:10] VITALS: BP 138/75; PULSE 53; RESP 12; O2SAT 96
== END 2025-07-19 12:50 | disposition home or self-care (01) ==
LOC: GI 09:47
PROVIDERS: ATTEND Internal Medicine
DX: R13.10 Dysphagia, unspecified (principal); K29.50 Unspecified chronic gastritis without bleeding; K29.80 Duodenitis without bleeding; K21.9 Gastro-esophageal reflux disease without esophagitis; E11.9 Type 2 diabetes mellitus without complications; N40.0 Benign prostatic hyperplasia without lower urinary tract symptoms; E66.01 Morbid (severe) obesity due to excess calories; Z68.41 Body mass index [BMI] 40.0-44.9, adult; Z79.899 Other long term (current) drug therapy; Z87.440 Personal history of urinary (tract) infections; Z96.653 Presence of artificial knee joint, bilateral; Z98.890 Other specified postprocedural states
CPT/HCPCS: 43239; 43450; 82962; 88305; 88342; J2250; J2405; J2704; J3010; J7030